=== PATIENT | female | born 1945 | race Caucasian/White ===

== ENCOUNTER → 2019-09-03 | Outpatient (CLI) | payer MEDICARE, OTHER | LOC: GMAJ 14:33 | PROVIDERS: ATTEND Family Medicine | DX: I10 Essential (primary) hypertension (principal) ==

== ENCOUNTER 2019-11-28 10:39 | Emergency (ER) | payer MEDICARE, OTHER ==
--- NOTE | 2019-11-28 10:56 | ED.PDOC ---
History of Present Illness - General Time Seen by Provider: 11/28/19 10:48 Source: patient Additional Information: 74yo F presents with tightness in her armpits and chest onset earlier this AM. Symptoms began spontaneously. They may have been triggered after she had a conversation with a scheduling office about an eye surgery. She is anxious about the surgery. She has Hx of hypertension, but did take her BP medication this AM including lisinopril and metoprolol. She denies SOB, palpitations, nausea or vomiting. She has no prior hx of heart disease or heart attack. She does not recall if she has had similar pain in the past, but has been eval under similar circumstances in the past with no acute findings. She has no hx of exertional CP. The patient does not take ASA due to hx of unilateral nephrectomy s/p "an infection." She denies recent illness. Her within the past year, which is a significant stressor. No other reported issues. - History of Present Illness Severity: mild Improving Factors: nothing Worsening Factors: nothing Allergies/Adverse Reactions: Allergies Iodine Allergy (Verified 11/28/19 10:56) Penicillins Allergy (Verified 11/28/19 10:56) NSAIDs Adverse Reaction (Verified 11/28/19 10:56) Home Medications: Ambulatory Orders Acetaminophen [Tylenol] 1,000 mg PO BEDTIME 11/28/19 Acetaminophen [Tylenol] 1,000 mg PO Q8H PRN 11/28/19 Buspirone HCl 15 mg PO BID 11/28/19 Fluticasone Propionate (Nasal) [Fluticasone Propionate Na] 50 mcg NA DAILY PRN 11/28/19 Gabapentin 300 mg PO DAILY 11/28/19 Gabapentin 600 mg PO BEDTIME 11/28/19 Lisinopril 20 mg PO BID 11/28/19 Metoprolol Tartrate 50 mg PO BID 11/28/19 Pantoprazole Sodium 40 mg PO DAILY 11/28/19 Polyethylene Glycol 3350 17 gm PO DAILY 11/28/19 Psyllium [Konsyl] 2 tbls PO DAILY 11/28/19 Trazodone HCl [Trazodone Hydrochloride] 25 mg PO BEDTIME 11/28/19 Review of Systems - Review of Systems Constitutional: Denies: chills, fever EENTM: States: no symptoms reported Respiratory: Denies: cough, orthopnea, short of breath, wheezing Cardiology: States: chest pain. Denies: edema, palpitations, syncope Gastrointestinal/Abdominal: Denies: abdominal pain, diarrhea, nausea, vomiting Genitourinary: States: no symptoms reported Musculoskeletal: States: no symptoms reported Skin: States: no symptoms reported Neurological: States: anxiety, emotional problems. Denies: headache, numbness, paresthesia, weakness Endocrine: States: no symptoms reported Hematologic/Lymphatic: States: no symptoms reported Family Medical History - Family History Mother Family History: Unknown Living Status: Physical Exam - Physical Exam General Appearance: Alert, Anxious, Comfortable Eyes, Ears, Nose, Throat Exam: PERRL/EOMI, normal ENT inspection, TMs normal Neck: non-tender, full range of motion, supple Respiratory: chest non-tender, lungs clear, normal breath sounds, no respiratory distress Cardiovascular/Chest: normal peripheral pulses, regular rate, rhythm, no edema, no murmur Gastrointestinal/Abdominal: normal bowel sounds, non tender, soft Extremity: normal range of motion, non-tender, normal inspection, no pedal edema, inflammation Neurologic: chief cook II-XII nml as tested, no motor/sensory deficits, alert, normal mood/affect, oriented x 3 Skin Exam: normal color, warm/dry Progress - Progress Progress: DDX: ACS, palpitations, hypertension, acute elevated BP, lyte disorder, infection, renal failure, acute anxiety, msk pain. [facility][id number] 11/28/19 13:35 The patient reports improved symptoms at this time. No chest pain. BP has normalized. 11/28/19 13:39 The patient's repeat troponin is again negative. The patient has an atypical CP hx, no hx of CAD per her report, an unremarkable EKG and two neg troponins. Results discussed and options for care including observation in the hospital or close outpatient follow up with her doctor. She prefers outpatient follow up with her doctor at this time. We discussed s/s that warrant immediate return. All questions answered. It was a pleasure to care for this patient today. - Results/Orders Results/Orders: 11/28/19 11:15 EKG STAT Laboratory Results - last 24 hr 11/28/19 11/28/19 11/28/19 10:50 10:50 11:55 WBC 7.8 RBC 4.21 Hgb 14.6 Hct 43.1 MCV 102.2 H MCH 34.6 H MCHC 33.8 RDW 13.1 Plt Count 231 MPV 8.6 Absolute Neuts (auto) 5.00 Absolute Lymphs (auto) 1.90 Absolute Monos (auto) 0.70 Absolute Eos (auto) 0.00 Absolute Basos (auto) 0.10 Neutrophils % 64.7 Lymphocytes % 24.5 Monocytes % 9.5 H Eosinophils % 0.4 L Basophils % 0.9 Sodium 137 Potassium 4.4 Chloride 104 Carbon Dioxide 25 Anion Gap 12.4 BUN 14 Creatinine 1.05 BUN/Creatinine Ratio 13.3 Random Glucose 116 H Serum Osmolality 275.3 Calcium 9.4 Total Bilirubin 0.8 AST 22 ALT 23 Alkaline Phosphatase 46 Creatine Kinase 85 CK-MB (CK-2) 1.2 CK-MB (CK-2) % Not Reportable Troponin I < 0.02 Serum Total Protein 7.5 Albumin 4.5 Globulin 3.0 Albumin/Globulin Ratio 1.5 Urine Color Yellow Urine Appearance Clear Urine pH 7.5 Ur Specific Harrison 1.015 Urine Protein Negative Urine Glucose (UA) Negative Urine Ketones Negative Urine Blood Trace-intact H Urine Nitrite Negative Urine Bilirubin Negative Urine Urobilinogen 0.2 Ur Leukocyte Esterase Negative Urine RBC 0-1 Urine WBC 0 Ur Epithelial Cells 5-10 Urine Bacteria Rare 11/28/19 13:08 WBC RBC Hgb Hct MCV MCH MCHC RDW Plt Count MPV Absolute Neuts (auto) Absolute Lymphs (auto) Absolute Monos (auto) Absolute Eos (auto) Absolute Basos (auto) Neutrophils % Lymphocytes % Monocytes % Eosinophils % Basophils % Sodium Potassium Chloride Carbon Dioxide Anion Gap BUN Creatinine BUN/Creatinine Ratio Random Glucose Serum Osmolality Calcium Total Bilirubin AST ALT Alkaline Phosphatase Creatine Kinase CK-MB (CK-2) CK-MB (CK-2) % Troponin I < 0.02 Serum Total Protein Albumin Globulin Albumin/Globulin Ratio Urine Color Urine Appearance Urine pH Ur Specific Harrison Urine Protein Urine Glucose (UA) Urine Ketones Urine Blood Urine Nitrite Urine Bilirubin Urine Urobilinogen Ur Leukocyte Esterase Urine RBC Urine WBC Ur Epithelial Cells Urine Bacteria Last Vital Signs Temp 98.3 F 11/28/19 10:57 Pulse 55 L 11/28/19 13:20 Resp 20 11/28/19 13:20 BP 157/74 11/28/19 13:20 Pulse Ox 97 11/28/19 13:20 - EKG/XRAY/CT EKG: Sinus - 70. Nl axis. Nl intervals., no ST T wave changes Comments: @10:45 AM XRAY: chest - No acute findings. See formal read. Departure - Departure Clinical Impression: Essential hypertension, Elevated blood pressure reading, Acute anxiety Chest pain, unspecified Qualifiers: Chest pain type: unspecified Qualified Code(s): R07.9 - Chest pain, unspecified Time of Disposition: 13:33 Disposition: Discharge to Home or Self Care Condition: Good Instructions: DI for Chest Pain, High Blood Pressure (DC) Referrals: Joe Acuna MD [Primary Care Provider] - 1-2 Weeks Home Medications: Ambulatory Orders Acetaminophen [Tylenol] 1,000 mg PO BEDTIME 11/28/19 Acetaminophen [Tylenol] 1,000 mg PO Q8H PRN 11/28/19 Buspirone HCl 15 mg PO BID 11/28/19 Fluticasone Propionate (Nasal) [Fluticasone Propionate Na] 50 mcg NA DAILY PRN 11/28/19 Gabapentin 300 mg PO DAILY 11/28/19 Gabapentin 600 mg PO BEDTIME 11/28/19 Lisinopril 20 mg PO BID 11/28/19 Metoprolol Tartrate 50 mg PO BID 11/28/19 Pantoprazole Sodium 40 mg PO DAILY 11/28/19 Polyethylene Glycol 3350 17 gm PO DAILY 11/28/19 Psyllium [Konsyl] 2 tbls PO DAILY 11/28/19 Trazodone HCl [Trazodone Hydrochloride] 25 mg PO BEDTIME 11/28/19
--- NOTE | 2019-11-28 11:31 | RAD ---
EXAM: Chest,2 Views HISTORY: Chest pain COMPARISON: None. TECHNIQUE: Chest two views PA and lateral FINDINGS: Aortic arch is mildly tortuous. Heart size and pulmonary vessels within normal limits. Mild symmetric bilateral lower lungs/chest density on PA view most likely represents overlying breast/chest wall attenuation artifact. No focal consolidation, lung mass, pulmonary edema, significant pleural effusion, or pneumothorax. Few surgical clips overlie medial left apex region. Mild thoracic spine degenerative changes. Midthoracic vertebral body old-appearing compression fracture. IMPRESSION: No radiographic evidence of acute chest disease. Electronically signed by: Cornelius Osborn MD 11/28/2019 11:30 AM CDT
[2019-11-28 12:19] VITALS: O2SAT 97
[2019-11-28 13:54] VITALS: BP 159/80; TEMP 97.6
== END 2019-11-28 14:00 | disposition home or self-care (01) ==
LOC: ER 10:39
DX: I10 Essential (primary) hypertension (principal); F41.9 Anxiety disorder, unspecified; R07.9 Chest pain, unspecified; Z79.899 Other long term (current) drug therapy
CPT/HCPCS: 36415; 71046; 80053; 81001; 82550; 82553; 84484; 85025; 93005; J2060

== ENCOUNTER 2019-12-11 16:52 | Emergency (ER) | payer MEDICARE, OTHER ==
[2019-12-11] MEDS ORDERED: ONDANSETRON INJ 4 MG/2 ML VIAL IV ONE (17:13)
[2019-12-11] MEDS ORDERED: SODIUM CHLORIDE 0.9% (FLUSH) 10 ML SYG IV PRN (17:13)
[2019-12-11] MEDS ORDERED: NITROGLYCERIN 0.4 MG 25 EA TAB SL ONE (17:13)
[2019-12-11] MEDS ORDERED: ASPIRIN TABLET 325 MG TAB PO ONE (17:13)
[2019-12-11] MEDS ORDERED: MORPHINE SULFATE INJ 10 MG/ML VIAL IV ONE (17:15)
--- NOTE | 2019-12-11 18:19 | RAD ---
EXAM DESCRIPTION: XR Chest, 1 View CLINICAL HISTORY: 74 years Female Chest pain TECHNIQUE: One view of the chest. COMPARISON: No prior exams provided for comparison. FINDINGS: Stable left apical surgical clips. The lungs are otherwise clear without focal consolidation, effusion, or pneumothorax. The cardiomediastinal silhouette and central pulmonary vasculature are stable without acute abnormality. No acute osseous abnormalities. IMPRESSION: No acute cardiopulmonary abnormalities. Stable exam. Electronically signed by: Vanesa Banks MD 12/11/2019 6:17 PM CDT
[2019-12-11] MEDS ORDERED: ALUM & MAG HYDROX-SIMETHICONE 30 ML, LIDOCAINE VISCOUS 2% 15 ML PO ONE ×4 (18:36→21:29)
[2019-12-11] MEDS ORDERED: SODIUM CHLORIDE 0.9% 1000ML 0 ML ONE (18:40)
--- NOTE | 2019-12-11 18:43 | ED.PDOC ---
History of Present Illness - General Chief Complaint: Cardiovascular Problem Stated Complaint: chest pain Time Seen by Provider: 12/11/19 16:54 Source: patient, RN notes reviewed, Vital Signs reviewed Exam Limitations: no limitations - History of Present Illness Initial Comments: This is a 74-year-old female presenting from assisted living for chest discomfort described as burning that radiates across her chest and into her right axilla. She denies any change with eating. No exacerbating or relieving factors noted. She has not taken anything for pain at home. She does not have any history of prior cardiac issues. She was seen in the emergency department approximately 1 month ago for similar pain, states this pain is similar in character but more severe than the pain. She said the pain never completely went away. He states the pain became worse this evening around 6:00. Allergies/Adverse Reactions: Allergies Iodine Allergy (Verified 12/11/19 17:39) Penicillins Allergy (Verified 12/11/19 17:39) NSAIDs Adverse Reaction (Verified 12/11/19 17:39) Home Medications: Ambulatory Orders Acetaminophen [Tylenol] 1,000 mg PO BEDTIME 11/28/19 Acetaminophen [Tylenol] 1,000 mg PO Q8H PRN 11/28/19 Buspirone HCl 15 mg PO BID 11/28/19 Fluticasone Propionate (Nasal) [Fluticasone Propionate Na] 50 mcg NA DAILY PRN 11/28/19 Gabapentin 300 mg PO DAILY 11/28/19 Gabapentin 600 mg PO BEDTIME 11/28/19 Lisinopril 20 mg PO BID 11/28/19 Metoprolol Tartrate 100 mg PO BID 11/28/19 Pantoprazole Sodium 40 mg PO DAILY 11/28/19 Psyllium [Konsyl] 2 tbls PO DAILY 11/28/19 Trazodone HCl [Trazodone Hydrochloride] 25 mg PO BEDTIME 11/28/19 Review of Systems - Review of Systems Constitutional: Denies: chills, fever, weakness EENTM: Denies: ear pain, nose congestion Respiratory: States: short of breath. Denies: cough, orthopnea, stridor, wheezing Cardiology: States: chest pain. Denies: edema, palpitations Gastrointestinal/Abdominal: Denies: constipation, diarrhea, nausea, vomiting Genitourinary: Denies: dysuria, frequency, hematuria Musculoskeletal: Denies: joint pain, muscle pain, muscle stiffness, neck pain Skin: Denies: change in color, lumps, rash Neurological: Denies: headache, numbness, tingling, weakness Endocrine: States: no symptoms reported Hematologic/Lymphatic: States: no symptoms reported Past Medical History (General) - Patient Medical History Hx Stroke: No Hx Dementia: Yes Hx Asthma: No Hx of COPD: No Hx Cardiac Disorders: No Hx Congestive Heart Failure: No Hx Hypertension: Yes Hx Diabetes: No Hx Gastroesophageal Reflux: Yes Hx Cancer: No Hx Hepatitis C: No Surgical History: cholecystectomy, colectomy, tonsillectomy, other - Vaccination History Hx Tetanus, Diphtheria Vaccination: No Hx Influenza Vaccination: No Hx Pneumococcal Vaccination: No Immunizations Up to Date: No - Social History Hx Tobacco Use: No Hx Alcohol Use: No Hx Substance Use: No Hx Substance Use Treatment: No Hx Depression: No - Female History Patient : No Family Medical History - Family History Mother Family History: Unknown Living Status: Physical Exam - Physical Exam General Appearance: Alert, Anxious, No apparent distress Eyes, Ears, Nose, Throat Exam: normal ENT inspection, TMs normal Neck: full range of motion, supple, normal inspection Respiratory: chest non-tender, lungs clear, normal breath sounds, no respiratory distress, no accessory muscle use Cardiovascular/Chest: normal peripheral pulses, regular rate, rhythm, no edema, no gallop, no JVD, no murmur Peripheral Pulses: radial,right: 2+, radial,left: 2+, dorsalis pedis,right: 1+, dorsalis pedis,left: 1+ Gastrointestinal/Abdominal: non tender, soft, no organomegaly, no pulsatile mass Rectal Exam: normal exam Extremity: normal range of motion, non-tender, normal inspection, no pedal edema Neurologic: no motor/sensory deficits, alert, normal mood/affect, oriented x 3 Skin Exam: normal color, warm/dry Progress - Progress Progress: 12/11/19 18:44 Called the bedside by RN, patient now hypotensive at 80s over 40s. Bradycardic in the 40s. Patient reporting worsening pain. She has a history of iodine allergy, skin only, hives. No previous anaphylactic reactions. Will CTA chest to evaluate for possible aortic dissection and will premedicate with Solu-Medrol and Benadryl. 12/11/19 21:31 Rechecked. Patient now reporting worsening burning sensation to her scalp diffusely. There is no rash or hives. Patient states her chest pain is improving. We will try Reglan for headache. At this time she has 2 normal troponins, no focal findings on exam apart from a brief episode of hypotension that was likely due to morphine that was given. Her blood pressures have subsequently normalized. I do not feel she needs to be admitted at this time. 12/11/19 22:19 Rechecked. Headache improved. Chest pain resolved. Etiology at this time remains unclear, possible GI versus chest wall pain. No indication for admission at this time given reassuring EKG and negative troponin x2. Recommended follow-up with PCP and with cardiology on an outpatient basis to discuss further outpatient work-up. DDX: ACS, PE, aortic dissection, chest wall pain, anxiety MDM: 74-year-old female with "burning" chest pain and "burning sensation" to scalp. Symptoms have been ongoing for a month, but worse today. EKG shows no acute ischemic changes. Troponins are negative x2. Her neuro exam is nonfocal. Labs today are reassuring. Very low suspicion for ACS at this time. She did get hypotensive and bradycardic briefly after she received a dose of morphine, this improved with IV fluids and her blood pressure actually remained elevated in the emergency department for the rest of her work-up. CTA of her chest was obtained to rule out aortic dissection after the hypotensive episode, no evidence of dissection or PE. At this time I do not feel she needs to be admitted for further work-up. Recommended follow-up with the PCP in 3 to 5 days and will give referral to cardiology on an outpatient basis. Strict warnings given to return the emergency room for worsening pain, leg swelling, shortness of breath, fever, worsening headache, changes mental status, nausea/vomiting, or any other concerns Tom Gamino DO [facility] #[id number] - Results/Orders Results/Orders: Initial EKG reviewed by me at 1701. Sinus rhythm, 61, left axis, normal intervals, poor R wave progression, no ST segment elevations or depressions Repeat EKG reviewed by me at 1847. Sinus bradycardia, rate of 47, left axis, normal intervals, poor R wave progression, no ST segment elevations or depression EXAM DESCRIPTION: XR Chest, 1 View CLINICAL HISTORY: 74 years Female Chest pain TECHNIQUE: One view of the chest. COMPARISON: No prior exams provided for comparison. FINDINGS: Stable left apical surgical clips. The lungs are otherwise clear without focal consolidation, effusion, or pneumothorax. The cardiomediastinal silhouette and central pulmonary vasculature are stable without acute abnormality. No acute osseous abnormalities. IMPRESSION: No acute cardiopulmonary abnormalities. Stable exam. Electronically signed by: Vanesa Banks MD 12/11/2019 6:17 PM CDT 12/11/19 17:13 Sodium Chloride 0.9% (Flush) [Saline Flush Syringe] 10 ml IV PRN PRN EKG Stat Pulse Ox Stat 12/11/19 18:45 CTA Chest [CT] Stat 12/11/19 18:49 Sodium Chloride 0.9% 1000ML [Ns 1000 ml] 1,000 ml IVS ONCE 12/11/19 19:00 EKG STAT Laboratory Results - last 24 hr 12/11/19 12/11/19 12/11/19 18:10 18:10 18:47 WBC 7.7 RBC 4.10 L Hgb 14.0 Hct 41.6 MCV 101.4 H MCH 34.2 H MCHC 33.7 RDW 12.9 Plt Count 225 MPV 9.0 Absolute Neuts (auto) 4.80 Absolute Lymphs (auto) 1.90 Absolute Monos (auto) 0.90 H Absolute Eos (auto) 0.10 Absolute Basos (auto) 0.00 Neutrophils % 62.1 Lymphocytes % 25.1 Monocytes % 11.4 H Eosinophils % 0.8 L Basophils % 0.6 Sodium 131 L Potassium 4.4 Chloride 97 L Carbon Dioxide 24 Anion Gap 14.4 BUN 12 Creatinine 1.06 BUN/Creatinine Ratio 11.3 Random Glucose 106 H Serum Osmolality 262.8 L Calcium 8.9 Total Bilirubin 0.5 AST 23 ALT 24 Alkaline Phosphatase 46 Troponin I < 0.02 B-Natriuretic Peptide 44.5 Serum Total Protein 7.4 Albumin 4.2 Globulin 3.2 Albumin/Globulin Ratio 1.3 PROCEDURE: CTA Chest CLINICAL HISTORY: 74 years Female Chest pain, hypotension TECHNIQUE: Contiguous axial images obtained through the chest were obtained from the thoracic inlet to the level of the upper abdomen during the pulmonary arterial phase of intravenous contrast administration. Coronal and sagittal reformatted and multiplanar MIP images provided. This CT exam was performed according to our departmental dose-optimization program, which includes one or more of the following dose reduction techniques: automated exposure control, adjustment of the mA and/or kV according to patient size, and/or use of iterative reconstruction technique. COMPARISON: No prior exams provided for comparison. FINDINGS: There is no pulmonary embolus. Borderline cardiac size. Aortic atherosclerosis without thoracic aortic aneurysm or dissection. Mild pulmonary edema with trace bilateral pleural effusions. There is a 1.4 cm, well- circumscribed, fluid attenuating nodule in the right middle lobe. The lungs are otherwise clear. The central airways are patent. No lymphadenopathy in the chest. Small distal esophageal diverticulum. Prior splenectomy. Laxity of the epigastric abdominal wall. No acute fracture or aggressive osseous lesion. Chronic mid thoracic compression deformities. IMPRESSION: No pulmonary embolus. Mild pulmonary edema with trace bilateral pleural effusions. 1.4 cm fluid-attenuating right middle lobe nodule is nonspecific but likely benign. Consider follow-up in three months. Electronically signed by: Vanesa Banks MD 12/11/2019 8:06 PM CDT - EKG/XRAY/CT CT Ordered: No Departure - Departure Clinical Impression: Acute chest pain Acute headache Qualifiers: Headache type: unspecified Intractability: not intractable Qualified Code(s): R51 - Headache Disposition: Discharge to Home or Self Care Condition: Good Departure Forms: ED Discharge - Pt. Copy, Patient Portal Self Enrollment Instructions: DI for Chest Pain Diet: resume usual diet Activity: increase activity as tolerated Referrals: Joe Acuna MD [Primary Care Provider] - 1-5 Days GURJIT CARRILLO MD [Consulting Staff] - 1-2 Weeks Home Medications: Ambulatory Orders Acetaminophen [Tylenol] 1,000 mg PO BEDTIME 11/28/19 Acetaminophen [Tylenol] 1,000 mg PO Q8H PRN 11/28/19 Buspirone HCl 15 mg PO BID 11/28/19 Fluticasone Propionate (Nasal) [Fluticasone Propionate Na] 50 mcg NA DAILY PRN 11/28/19 Gabapentin 300 mg PO DAILY 11/28/19 Gabapentin 600 mg PO BEDTIME 11/28/19 Lisinopril 20 mg PO BID 11/28/19 Metoprolol Tartrate 100 mg PO BID 11/28/19 Pantoprazole Sodium 40 mg PO DAILY 11/28/19 Psyllium [Konsyl] 2 tbls PO DAILY 05/16/20 Trazodone HCl [Trazodone Hydrochloride] 25 mg PO BEDTIME 11/28/19
[2019-12-11] MEDS ORDERED: diphenhydrAMINE HCL 50 MG/ML VIAL IV ONE ×2 (18:46→21:30)
[2019-12-11] MEDS ORDERED: methylPREDNISolone SODIUM SUC 125 MG/2 ML VIAL IV ONE (18:46)
[2019-12-11] MEDS ORDERED: SODIUM CHLORIDE 0.9% 1000ML 1,000 ML IVS ONE (18:49)
[2019-12-11 19:13] VITALS: TEMP 97.5
--- NOTE | 2019-12-11 20:07 | CT ---
PROCEDURE: CTA Chest CLINICAL HISTORY: 74 years Female Chest pain, hypotension TECHNIQUE: Contiguous axial images obtained through the chest were obtained from the thoracic inlet to the level of the upper abdomen during the pulmonary arterial phase of intravenous contrast administration. Coronal and sagittal reformatted and multiplanar MIP images provided. This CT exam was performed according to our departmental dose-optimization program, which includes one or more of the following dose reduction techniques: automated exposure control, adjustment of the mA and/or kV according to patient size, and/or use of iterative reconstruction technique. COMPARISON: No prior exams provided for comparison. FINDINGS: There is no pulmonary embolus. Borderline cardiac size. Aortic atherosclerosis without thoracic aortic aneurysm or dissection. Mild pulmonary edema with trace bilateral pleural effusions. There is a 1.4 cm, well-circumscribed, fluid attenuating nodule in the right middle lobe. The lungs are otherwise clear. The central airways are patent. No lymphadenopathy in the chest. Small distal esophageal diverticulum. Prior splenectomy. Laxity of the epigastric abdominal wall. No acute fracture or aggressive osseous lesion. Chronic mid thoracic compression deformities. IMPRESSION: No pulmonary embolus. Mild pulmonary edema with trace bilateral pleural effusions. 1.4 cm fluid-attenuating right middle lobe nodule is nonspecific but likely benign. Consider follow-up in three months. Electronically signed by: Vanesa Banks MD 12/11/2019 8:06 PM CDT
[2019-12-11] MEDS ORDERED: METOCLOPRAMIDE HCL INJ 10 MG/2 ML VIAL IV ONE (21:29)
[2019-12-11] MEDS ORDERED: LIDOCAINE HCL 2% (MOUTH-THROAT) 15 ML UD ONE (21:46)
[2019-12-11 22:03] VITALS: BP 171/91; O2SAT 94
== END 2019-12-11 22:33 | disposition home or self-care (01) ==
LOC: ER 16:52
DX: R07.89 Other chest pain (principal); R51 Headache; I10 Essential (primary) hypertension; Z79.899 Other long term (current) drug therapy
CPT/HCPCS: 36415; 71045; 71275; 80053; 83880; 84484; 85025; 93005; A4216; J1200; J2270; J2405; J2765; J2930; J7030